=== PATIENT | female | born 1995 | race Caucasian/White ===

== ENCOUNTER 2016-09-27 20:34 | Emergency (ER) | payer BC ==
--- NOTE | ~2016-09-27 | CR116 ---
[facility] [[email or web address] A Service of [facility] / [facility] RADIOLOGY TEXT RESULTS PATIENT: MIKAELA STAHL LOCATION: SED : [birth year] UNIT #: [id number] AGE: [address]: Diana Cabrera SEX: F ORDER DR: [id number] [address] [address] [id number] E MR#: [id number] Acc #: [id number] NAME: MIKAELA STAHL : 1995 SEX: F STUDY DATE/TIME: 09/27/2016 20:17 UNIT: SED ROOM: STUDY DESCRIPTION: CR Finger 2 View Thumb Lt Attending Physician: Diana Cabrera Pa-C Ordering Physician: Diana Cabrera Pa-C Primary Care Physician: Jasper Isaacs M.D. MEDICAL IMAGING REPORT This report is preliminary unless electronic signature is present. EXAM Left thumb, 2 views, 09/27/16 HISTORY Left thumb pain after hitting thumb on desk tonight FINDINGS Two views of the left thumb demonstrate no fracture. The bones are normally mineralized. There is no soft tissue abnormality. IMPRESSION Negative left thumb. Dictated by... Damion Alvarado M.D. THIS IS AN ELECTRONICALLY VERIFIED REPORT Damion Alvarado M.D. at 09/28/2016 2:14 PM KRT/dedrick TD: 09/27/2016 22:37 JOB #: [id number] MEDICAL IMAGING REPORT Page 1 of 1
[~2016-09-27 20:34] MED LIST: DEPO-PROVER150 MG/ML INJ; NAPROSYN500 MG PO; NO MEDICATIONS
== END 2016-09-27 21:22 | disposition home or self-care (01) ==
LOC: SED 20:34
DX: S60.012A Contusion of left thumb without damage to nail, initial encounter (principal); I10 Essential (primary) hypertension; W22.8XXA Striking against or struck by other objects, initial encounter; Y92.009 Unspecified place in unspecified non-institutional (private) residence as the place of occurrence of the external cause
CPT/HCPCS: 29130; 73140; 99283